=== PATIENT | female | born 1990 | race Caucasian/White ===

== ENCOUNTER → 2021-12-31 | Outpatient (CLI) | payer OTHER, SELFPAY ==
--- NOTE | 2021-12-31 11:04 | RAD_ITS ---
STUDY: X-RAY CHEST REASON FOR EXAM: Female, 31 years old. Psoriatic arthritis. No chest complaints. May be checking for tuberculosis. TECHNIQUE: PA and lateral views of the chest. COMPARISON: None. FINDINGS: The lungs are clear and expanded. No acute infiltrate or mass. There is no evidence of active tuberculosis. There is no demonstrated pleural abnormality. Normal size heart. Normal mediastinum and ruthann. Normal visualized pulmonary arteries. Normal visualized aortic arch and descending thoracic aorta. Normal visualized thoracic spine. Normal visualized ribs, clavicles, and shoulders. There is no demonstrated abnormality of the visualized soft tissue structures of the upper abdomen. RAD/Chest PA and Lateral IMPRESSION: Normal x-ray examination of the chest. Electronically Signed: Chas Rust DO at 20:38 EDT ,
[2021-12-31 11:50] LABS: EXAGEN MAILED SPECIMEN
[2021-12-31 12:16] LABS: Absolute Lymphocyte Count 1.74 X10^3/uL (0.83-4.51); Absolute Neutrophil Count 2.8 X10^3/uL (2.0-7.7); Basophil# 0.04 X10^3/uL; Basophil% 0.8 % (0-1); Eosinophil# 0.07 X10^3/uL; Eosinophils% 1.4 % (0-5); Erythrocyte Sedimentation Rate 3 mm/hr (0-30); Hematocrit 41.8 % (37-47); Hemoglobin 14.4 g/dL (12.0-15.0); Lymphocyte # 1.74 X10^3/ul (0.83-4.51); Lymphocyte % 34.7 % (19-41); Mean Corp Hgb Conc 34.4 g/dL (32-36); Mean Corpuscular Volume 84.3 fL (81-99); Mean Platelet Vol. 10.5 fl (6.2-12.0); Monocyte# 0.34 X10^3/uL; Monocyte% 6.8 % (0-10); NRBC Flagged by Analyzer 0 % (0-5); Neutrophil # 2.83 X10^3/uL (2.7-7.7); Neutrophil % 56.3 % (47-70); Platelet Count 325 K/mm3 (150-450); RBC Distribution Width CV 11.9 % (11.6-14.6); Red Blood Count 4.96 M/mm3 (4.2-5.4)
[2021-12-31 12:34] LABS: Color, Urine Yellow (Yellow); Glucose, Dipstick Normal (Normal); Ketone-Dipstick Negative (Negative); Leukocyte Esterase-Dipstick Negative /ul (Negative); Nitrite-Dipstick Negative (Negative); Occult Blood-Urine Negative /ul (Negative); Protein-Dipstick Negative (Negative); Specific Gravity, Urine 1.015 (1.002-1.030); Urine Bilirubin Dipstick Negative (Negative); Urine Clarity Clear (Clear); Urine Urobilinogen Normal (Normal)
[2021-12-31 12:48] LABS: International Normalized Ratio 1.3; Prothrombin Time (Protime)PT. 15.4 SECONDS (11.7-14.9)
[2021-12-31 12:49] LABS: Partial Thromboplast Time 36.4 Seconds (24.1-36.2)
[2021-12-31 12:54] LABS: ALB/GLOB Ratio 1.1 RATIO (0.9-2.4); AST(SGOT) 23 U/L (15-37); Alanine Aminotransfer ALT/SGPT 56 U/L (13-56); Alkaline Phosphatase 80 U/L (45-117); Anion Gap 6 (5-15); BUN 11 mg/dL (7-18); CRP < 2.90 mg/L (0.0-3.0); Calcium,Total 9.2 mg/dL (8.5-10.1); Chloride 103 mmol/L (98-107); Creatinine, Serum 0.85 mg/dL (0.55-1.02); EST Glomerular Filtration Rate 82 mL/min (>60); Est Glom Filt Rate - Afr Amer 99 mL/min (>60); Globulin 3.5 g/dL (2.2-4.2); Glucose 93 mg/dL (74-106); Potassium 3.8 mmol/L (3.5-5.1); Protein, Total 7.5 g/dL (6.4-8.2); Sodium Level 137 mmol/L (136-145)
[2021-12-31 13:06] LABS: Protein, Urine (Random) 13.3 mg/dL (<11.9); Protein:Creat Ratio 69 mg/g CRE (0-200)
[2021-12-31 13:37] LABS: Hepatitis B Surface Antibody Reactive; Hepatitis B Surface Antigen Non-Reactive (Nonreactive); Hepatitis C Antibody Non-Reactive (Nonreactive)
[2022-01-04 17:48] LABS: Thrombin Time 18.1 sec (0.0-23.0)
[2022-01-08 20:07] LABS: Dilute Prothrombin Time (dPT) 42.4 sec (0.0-47.6); Dilute Russell Viper Venom 42.3 sec (0.0-47.0); Hexagonal Phase Phospholipid 1 sec (0-11); PTT-LA 46.6 sec (0.0-51.9); QNTFERON TB Mitogen Value > 10.00 IU/mL (.); QNTFERON TB Nil Value 0.03 IU/mL (.); QNTFERON TB1+ Ag Value 0.04 IU/mL (.); QNTFERON TB2+ Ag Value 0.06 IU/mL (.); Thrombin Time 20.6 sec (0.0-23.0); dPT Confirm Ratio 0.99 Ratio (0.00-1.34)
[2022-01-09 12:30] LABS: HLA B27 Positive (.); Interpretation Comment: (.); QNTIFERON TB Positive Criteria Negative (Negative)
== END | disposition home or self-care (01) ==
PROVIDERS: PCP Nurse Practitioner Family; Referring Provider Internal Medicine Rheumatology; Visit Provider Internal Medicine Rheumatology
DX: L40.50 Arthropathic psoriasis, unspecified (principal); R76.8 Other specified abnormal immunological findings in serum; M79.7 Fibromyalgia; Q61.5 Medullary cystic kidney; N20.0 Calculus of kidney; F41.9 Anxiety disorder, unspecified; F32.A Depression, unspecified; Z79.899 Other long term (current) drug therapy
CPT/HCPCS: 36415; 71046; 80053; 81002; 81374; 82570; 84156; 85025; 85598; 85610; 85652; 85670; 85730; 86140; 86480; 86706; 86803; 87340

== ENCOUNTER → 2022-03-12 | Outpatient (CLI) | payer OTHER, SELFPAY ==
[2022-03-12 15:29] LABS: Absolute Lymphocyte Count 1.36 X10^3/uL (0.83-4.51); Basophil# 0.03 X10^3/uL; Basophil% 0.5 % (0-1); Eosinophil# 0.08 X10^3/uL; Eosinophils% 1.4 % (0-5); Hemoglobin 14.3 g/dL (12.0-15.0); Lymphocyte # 1.36 X10^3/ul (0.83-4.51); Lymphocyte % 23.1 % (19-41); Mean Corp Hgb Conc 35.8 g/dL (32-36); Mean Corpuscular Hgb 30.2 pg (27.0-32.0); Mean Corpuscular Volume 84.4 fL (81-99); Mean Platelet Vol. 10.7 fl (6.2-12.0); Monocyte# 0.36 X10^3/uL; Monocyte% 6.1 % (0-10); NRBC Flagged by Analyzer 0 % (0-5); Neutrophil # 4.04 X10^3/uL (2.7-7.7); Neutrophil % 68.4 % (47-70); Platelet Count 297 K/mm3 (150-450); RBC Distribution Width CV 12.2 % (11.6-14.6); RBC Distribution Width SD 36.6 fl (35.1-43.9); Red Blood Count 4.74 M/mm3 (4.2-5.4); White Blood Count 5.9 K/mm3 (4.4-11.0)
[2022-03-12 15:39] LABS: ALB/GLOB Ratio 1.2 RATIO (0.9-2.4); AST(SGOT) 28 U/L (15-37); Alanine Aminotransfer ALT/SGPT 73 U/L (13-56); Albumin, Serum 3.8 g/dL (3.2-5.0); Alkaline Phosphatase 83 U/L (45-117); Anion Gap 6 (5-15); BUN 11 mg/dL (7-18); BUN/Creat Ratio 14.5 RATIO (10-20); Calcium,Total 9.2 mg/dL (8.5-10.1); Chloride 106 mmol/L (98-107); Creatinine, Serum 0.76 mg/dL (0.55-1.02); EST Glomerular Filtration Rate 93 mL/min (>60); Est Glom Filt Rate - Afr Amer 113 mL/min (>60); Globulin 3.3 g/dL (2.2-4.2); Glucose 126 mg/dL (74-106); Potassium 3.6 mmol/L (3.5-5.1); Protein, Total 7.1 g/dL (6.4-8.2); Sodium Level 136 mmol/L (136-145)
== END | disposition home or self-care (01) ==
PROVIDERS: PCP Nurse Practitioner Family; Referring Provider Internal Medicine Rheumatology; Visit Provider Internal Medicine Rheumatology
DX: L40.50 Arthropathic psoriasis, unspecified (principal); R76.8 Other specified abnormal immunological findings in serum; Z79.899 Other long term (current) drug therapy
CPT/HCPCS: 36415; 80053; 85025

== ENCOUNTER → 2022-04-11 | Outpatient (CLI) | payer OTHER, SELFPAY ==
[2022-04-11 13:22] LABS: ALB/GLOB Ratio 1.1 RATIO (0.9-2.4); AST(SGOT) 16 U/L (15-37); Alanine Aminotransfer ALT/SGPT 49 U/L (13-56); Albumin, Serum 3.9 g/dL (3.2-5.0); Alkaline Phosphatase 87 U/L (45-117); Anion Gap 8 (5-15); BUN 14 mg/dL (7-18); BUN/Creat Ratio 17.2 RATIO (10-20); Calcium,Total 9.2 mg/dL (8.5-10.1); Chloride 104 mmol/L (98-107); Creatinine, Serum 0.81 mg/dL (0.55-1.02); EST Glomerular Filtration Rate 86 mL/min (>60); Est Glom Filt Rate - Afr Amer 104 mL/min (>60); Globulin 3.4 g/dL (2.2-4.2); Glucose 103 mg/dL (74-106); Potassium 3.7 mmol/L (3.5-5.1); Protein, Total 7.3 g/dL (6.4-8.2); Sodium Level 136 mmol/L (136-145)
== END | disposition home or self-care (01) ==
LOC: LAB 12:40
PROVIDERS: PCP Nurse Practitioner Family; Referring Provider Internal Medicine Rheumatology; Visit Provider Internal Medicine Rheumatology
DX: L40.50 Arthropathic psoriasis, unspecified (principal); R76.8 Other specified abnormal immunological findings in serum; Z79.899 Other long term (current) drug therapy
CPT/HCPCS: 36415; 80053

== ENCOUNTER 2022-04-22 14:48 | Emergency (ER) | payer OTHER, SELFPAY ==
[2022-04-22 14:51] VITALS: BP 125/96; PULSE 84; RESP 18; TEMP 35.7; O2SAT 100; BMI 38.9
--- NOTE | 2022-04-22 17:29 | EX.ED.VIS.UR ---
HPI <SEAN Lion - Last Filed: 04/22/22 21:34> HPI - URI History of Present Illness Chief Complaint: Cough Narrative Narrative: Patient presents today with a cough and fever that she has had since Friday. 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 Patient's son is also sick with similar symptoms. She has been taking ibuprofen for fever control. She denies shortness of breath, chest pain, nausea, vomiting, and diarrhea. ROS <SEAN Lion - Last Filed: 04/22/22 21:34> ROS ED Constitutional Constitutional ED: Reports fever(s); Denies chills or sweats Eyes Eyes: Denies blurry vision or change in vision ENT ENT ED: Reports ear pain left and nasal congestion; Denies sore throat Cardiovascular Cardiovascular: Denies chest pain or palpitations Respiratory/Chest Respiratory/Chest: Reports cough; Denies dyspnea, dyspnea on exertion, tachypnea or wheezing Gastrointestinal Gastrointestinal: Denies abdominal pain, nausea or vomiting Genitourinary Genitourinary ED: Denies dysuria, hematuria or urinary frequency Musculoskeletal Musculoskeletal: Denies myalgias or neck pain Integumentary Denies abscess, Abrasions or rash Neurologic Neurologic: Denies headache(s), paresthesias or weakness Psychiatric Psychiatric: Denies anxiety, depression or suicidal ideation Allergic/Immunologic Allergic/Immunologic ED: Denies mouth swelling or tongue swelling PFSH <SEAN Lion - Last Filed: 04/22/22 21:34> PFS Medical History Medullary sponge kidney Psoriatic arthritis Home Medications adalimumab 40 mg/0.4 mL subcutaneous syringe kit (Humira(CF)) 40 mg subcut X1 04/22/22 [History Last Taken Unknown] sertraline 100 mg tablet 100 mg PO QHS 04/22/22 [History Last Taken Unknown] trazodone 50 mg tablet 50 mg PO QHS 04/22/22 [History Last Taken Unknown] Allergy/AdvReac Type Severity Reaction Status Date / Time No Known Allergies Allergy Verified 04/22/22 14:50 Surgical History H/O: hysterectomy Social History Smoking Status: Never smoker EXAM <SEAN Lion - Last Filed: 04/22/22 21:34> Physical Exam Const Vital Signs: 04/22/22 14:51 04/22/22 17:10 04/22/22 18:30 Temperature 96.2 F L Temperature Source Temporal Pulse Rate 84 85 Respiratory Rate 18 16 Respiratory Depth Normal Respiratory Pattern Normal Blood Pressure 125/96 H 120/89 H Blood Pressure Mean 105 Pulse Ox 100 99 Oxygen Delivery Method Room Air Positive well nourished and well developed General Appearance ED: well developed and NAD HEENT Reports moist mucous membranes normocephalic Throat: uvula midline and posterior oropharynx abnormal Positive for erythema Eyes PERRL and EOMs intact bilaterally Neck no lymphadenopathy, supple and no meningeal signs Resp normal respiratory effort Auscultation: crackles diffuse Cardio no murmurs Rate: regular rate Rhythm: regular rhythm GI non-distended and no masses GI Narrative: Some tenderness to palpation in the epigastric region which she attributes to a possible hernia. Palpation: soft Back/Spine normal ROM Extremity normal to inspection and full ROM Neuro oriented x3, CN's II-XII intact bilaterally and no sensory deficits noted Sensorium / Orientation: alert Motor Exam: strength 5/5 throughout Psych mental status grossly normal Skin Lesions: no lesions Rashes: no rashes <Dr. Tej Sheffield MD - Last Filed: 04/22/22 17:39> Physical Exam Const Vital Signs: 04/22/22 14:51 04/22/22 17:10 04/22/22 18:30 Temperature 96.2 F L Temperature Source Temporal Pulse Rate 84 85 Respiratory Rate 18 16 Respiratory Depth Normal Respiratory Pattern Normal Blood Pressure 125/96 H 120/89 H Blood Pressure Mean 105 Pulse Ox 100 99 Oxygen Delivery Method Room Air MDM <SEAN Lion - Last Filed: 04/22/22 21:34> [facility] MDM Narrative Medical decision making narrative: I have personally performed a face to face assessment of the patient and have reviewed the TRISTIN Note. I performed a substantive portion of the visit including all aspects of the following. My hall findings include: History is [31-year-old female 7 history of URI symptoms. Nonproductive cough. Son came down with similar symptoms. No vomiting or diarrhea.] Exam is [there is erythema no acute distress vital signs stable afebrile. Pulse ox 9% on room air no hypoxia. H EENT exam unremarkable. Moist Riis members. Neck nontender no JVD. Lungs dry hacking cough. No rales, rhonchi or wheezing. Equal symmetrical. Heart regular rhythm no murmur. Abdomen soft nontender. Moving all 4 extremities. Calves are nontender with edema or cords.] Medical Decision Making [history and exam consistent with viral URI. Chest x-ray, COVID and influenza are pending. I suspect all 3 will be negative. Discharged home for symptomatic treatment.] Other additions or changes: [None] Patient has symptoms consistent with a viral URI. Chest x-ray does not show any infiltrates. COVID and flu are negative. I am comfortable with patient discharging home and patient is comfortable with plan. She has been given education on supportive care measures. Radiography Diagnostic Testing: Clinical Impression(s) from Imaging Studies Chest X-Ray 04/22/22 17:55 IMPRESSION: No radiographic evidence of acute cardiopulmonary disease. Electronically Signed: Vickie Amezquita MD at 19:01 EST Reading Location ID and State: [id number] / Tel , Service support , Chest x-ray does not show any acute disease. I agree with radiologist impressions. This x-ray has also been reviewed by attending ED physician. <Dr. Tej Sheffield MD - Last Filed: 04/22/22 17:39> [facility] Narrative Medical decision making narrative: I have personally performed a face to face assessment of the patient and have reviewed the TRISTIN Note. I performed a substantive portion of the visit including all aspects of the following. My hall findings include: History is [31-year-old female 7 history of URI symptoms. Nonproductive cough. Son came down with similar symptoms. No vomiting or diarrhea.] Exam is [there is erythema no acute distress vital signs stable afebrile. Pulse ox 9% on room air no hypoxia. H EENT exam unremarkable. Moist Riis members. Neck nontender no JVD. Lungs dry hacking cough. No rales, rhonchi or wheezing. Equal symmetrical. Heart regular rhythm no murmur. Abdomen soft nontender. Moving all 4 extremities. Calves are nontender with edema or cords.] Medical Decision Making [history and exam consistent with viral URI. Chest x-ray, COVID and influenza are pending. I suspect all 3 will be negative. Discharged home for symptomatic treatment.] Other additions or changes: [None] Radiography Diagnostic Testing: Clinical Impression(s) from Imaging Studies Chest X-Ray 04/22/22 17:55 IMPRESSION: No radiographic evidence of acute cardiopulmonary disease. Electronically Signed: Vickie Amezquita MD at 19:01 EST , Discharge Plan Triage Chief Complaint: Cough Other Complaint: Fever ED Midlevel Provider: Madelaine Mccarthy ED Provider: Tej Sheffield Dx/Rx/DC Orders Clinical Impression: Viral URI with cough Instructions: ED URI, Viral, No Abx (Adult) Prescriptions: No Action trazodone 50 mg tablet 50 mg PO QHS sertraline 100 mg tablet 100 mg PO QHS Humira(CF) 40 mg/0.4 mL syringe kit 40 mg SUBCUT X1 Rx Instructions: every 2 weeks Primary Care Provider: Toyin Lorenzana ASSOCIATE PROFESSOR OF KINESIOLOGY Referrals: Toyin Lorenzana ASSOCIATE PROFESSOR OF KINESIOLOGY, ASSOCIATE PROFESSOR OF KINESIOLOGY-C [Primary Care Provider] - 5-7 Days Activity Restrictions/Additional Instructions: Use Tylenol and ibuprofen for fever control. You can use [id number] cough medicine to help control your cough as well as cough drops. Please stay well-hydrated and return if symptoms worsen. Disposition Disposition: Home, Self Care Discharge Date/Time: 04/22/22 18:32
--- NOTE | 2022-04-22 17:55 | RAD_ITS ---
INDICATION: cough EXAMINATION/TECHNIQUE: X-RAY - XR Chest 1 View COMPARISON: 12/31/2021. FINDINGS: LINES/DEVICES: None. LUNGS: No consolidation, edema or effusion. No pneumothorax. MEDIASTINUM AND CARDIOVASCULAR STRUCTURES: Cardiac silhouette not enlarged. Central airways and mediastinal contour are unremarkable. BONES AND SOFT TISSUES: Unremarkable. RAD/Chest 1 View (Portable) IMPRESSION: No radiographic evidence of acute cardiopulmonary disease. Electronically Signed: Vickie Amezquita MD at 19:01 EST Reading Location ID and State: [id number] / Tel , Service support ,
[2022-04-22 18:30] VITALS: BP 120/89; PULSE 85; RESP 16; O2SAT 99
== END 2022-04-22 18:32 | disposition home or self-care (01) ==
LOC: ED 17:51
PROVIDERS: Emergency Provider Emergency Medicine; PCP Nurse Practitioner Family; Visit Provider Emergency Medicine
DX: J06.9 Acute upper respiratory infection, unspecified (principal); Z79.899 Other long term (current) drug therapy
CPT/HCPCS: 71045; 87428; 99282

== ENCOUNTER 2022-06-15 11:05 | Emergency (ER) | payer OTHER, SELFPAY ==
[2022-06-15 11:06] VITALS: BP 113/101; PULSE 131; RESP 20; TEMP 36.1; O2SAT 97; BMI 35.7
--- NOTE | 2022-06-15 11:18 | ED.VIS.GI ---
HPI HPI - GI History of Present Illness Chief Complaint: Flank Pain Narrative Narrative: 31-year-old female past medical history of ureteral stones presents with increasing pain that she has had since 10 PM last evening, approximately 13 hours ago. She states that she sees Dr. Funes with urology, and has a protocol where she takes Ditropan, Toradol, and Flomax when she thinks she has a stone. She has taken this and this morning has had increasing pain in her right flank radiating towards the front. She denies any fevers or chills. No nausea or vomiting currently. She denies any dysuria or hematuria yet. Of note, she states she also had diarrhea intermittently over the last week, and had an episode of diarrhea today. It was nonbloody, but she is unsure if this is anything to do with her right flank pain. [facility] PFS Medical History Medullary sponge kidney Psoriatic arthritis Home Medications adalimumab 40 mg/0.4 mL subcutaneous syringe kit (Humira(CF)) 40 mg subcut X1 04/22/22 [History Last Taken Unknown] sertraline 100 mg tablet 100 mg PO QHS 04/22/22 [History Last Taken Unknown] trazodone 50 mg tablet 50 mg PO QHS 04/22/22 [History Last Taken Unknown] Allergy/AdvReac Type Severity Reaction Status Date / Time No Known Allergies Allergy Verified 06/15/22 11:06 Surgical History H/O: hysterectomy Social History Smoking Status: Never smoker ROS ROS ED ROS Narrative Constitutional: No fever, no chills. HEENT: No sore throat. No neck pain. No loss of vision. No rhinorrhea. Cardiovascular: No chest pain. No palpitations. No pedal edema. Respiratory: No cough, no shortness of breath. Abdominal: No abdominal pain. No nausea. No vomiting. Genitourinary: No dysuria. No hematuria. Positive for right flank pain radiating towards the front. Musculoskeletal: No myalgias. No arthralgias. Neurologic: No headaches. No dizziness. No lightheadedness. Skin: No rash. No change in color. Psychiatric: No depression. No anxiety. EXAM Physical Exam Narrative Exam Narrative: Afebrile. Vital signs noted. Appears uncomfortable with colicky pain. HEENT: Normocephalic. Atraumatic. PERRL, EOMI. Neck soft and supple. No point tenderness or step off. Cardiovascular: Positive tachycardia.. No murmurs, rubs, or gallops appreciated. Respiratory: No tachypnea. Lungs clear to auscultation bilaterally. Gastrointestinal: Abdomen soft, nontender, with normoactive bowel sounds. No rebound or guarding. Right flank tenderness to percussion. Neurological: Awake. Alert. Nonfocal, nonlateralizing. Skin: No rash. Normal color. No pallor. Musculoskeletal: No pedal edema. Full range of motion extremities. Const Vital Signs: 06/15/22 11:06 06/15/22 11:08 06/15/22 16:09 Temperature 97 F L Temperature Source Temporal Pulse Rate 131 H 91 Respiratory Rate 20 H 16 Respiratory Effort Normal Non-Labored Respiratory Pattern Normal Blood Pressure 113/101 H 114/67 Blood Pressure Mean 105 82 Pulse Ox 97 98 Oxygen Delivery Method Room Air Room Air MDM MDM MDM Narrative Medical decision making narrative: In the differential diagnosis is ureterolithiasis versus right-sided diverticulitis given her diarrhea. She was bolused normal saline 1 L intravenously. She was administered Dilaudid 1 mg for analgesia along with Toradol 15 mg intravenously and ondansetron 4 mg intravenously. CBC, CMP, UA, and CT imaging without contrast was obtained. I reviewed her laboratory work, she has a normal white count of 7.9, hemoglobin 15.2, platelet count normal at 241. Electrolyte panel is reviewed and chloride is slightly elevated at 108, normal sodium of 139, BUN normal at 9, creatinine 0.81. Urinalysis shows ketones at 150, but no evidence of infection with 0-5 WBCs. I do not feel that antibiotics are indicated. CT of the abdomen pelvis without contrast was obtained and reviewed. I see no evidence of hydronephrosis or ureterolithiasis. I reviewed the radiology report, and there is concern for ovarian torsion as she has a right ovary that measures 6.2 x 5.5 cm. Ultrasound was suggested. Transvaginal ultrasound was obtained. In review of the radiology report, while there is vascular flow, there is concern for ovarian torsion as it is enlarged and has echogenic follicles in the periphery, and small cyst with moderate complex free fluid concerning for hemorrhage. Given her clinical examination, and the fact that she had required 3 doses of Dilaudid, I will discuss the patient with Dr. Davis with OBGYN. Disposition is pending [employer] evaluation, but is anticipated admission. Patient is in stable condition. Lab Data Attestation: I reviewed the patient's lab results. Labs: Laboratory Results - last 24 hr 06/15/22 06/15/22 06/15/22 11:35 11:35 13:09 WBC 7.9 RBC 5.41 H Hgb 15.2 H Hct 45.2 MCV 83.5 MCH 28.1 MCHC 33.6 RDW Std Deviation 36.9 RDW Coeff of Shannon 12.2 Plt Count 241 MPV 10.2 Immature Gran % (Auto) 0.100 Neut % (Auto) 75.6 H Lymph % (Auto) 11.7 L Churchill % (Auto) 10.5 H Eos % (Auto) 1.6 Baso % (Auto) 0.5 Absolute Neuts (auto) 6.0 Absolute Lymphs (auto) 0.93 Nucleated RBC % 0 Sodium 139 Potassium 3.7 Chloride 108 H Carbon Dioxide 21.0 Anion Gap 10 BUN 9 Creatinine 0.81 Estim Creat Clear Calc 81.72 Est GFR (MDRD) Af Amer 105 Est GFR (MDRD) Non-Af 87 BUN/Creatinine Ratio 11.2 Glucose 119 H Calcium 9.5 Urine Color Yellow Urine Clarity Clear Urine pH 6.0 Ur Specific Hawkins 1.015 Urine Protein 30 H Urine Glucose (UA) Normal Urine Ketones 150 A* Urine Occult Blood Negative Urine Nitrite Negative Urine Bilirubin Negative Urine Urobilinogen Normal Ur Leukocyte Esterase Negative Urine RBC 0 SEEN Urine WBC 0-5 SEEN Ur Squamous Epith Cells 0-5 SEEN Urine Bacteria 1+ Urine Mucus 0 SEEN Radiography Diagnostic Testing: Clinical Impression(s) from Imaging Studies Abdomen/Pelvis CT 06/15/22 12:38 IMPRESSION: 1. Nonobstructing bilateral kidney stones. 2. Mild splenomegaly 3. The right ovary is moderately enlarged at 6.24 x 5.51 cm but no mass or suspicious process is seen. The left ovary is unremarkable. Electronically Signed: Winston Albert MD at 13:56 EST , Transvaginal US 06/15/22 14:02 IMPRESSION: Vascular flow demonstrated to both ovaries with abnormal grayscale appearance of the right ovary, enlarged and echogenic with peripheral follicles and small cyst suspicious for ovarian torsion if there is a high clinical suspicion. Moderate complex free fluid in the pelvis concerning for hemorrhage. Electronically Signed: Adelia Parks MD at 15:52 EST , ADDENDUM: 06/15/22 1607 IMPRESSION: Vascular flow demonstrated to both ovaries with abnormal grayscale appearance of the right ovary, enlarged and echogenic with peripheral follicles and small cyst suspicious for ovarian torsion if there is a high clinical suspicion. Moderate complex free fluid in the pelvis concerning for hemorrhage. N.B. : Gene Alfaro MD, confirmed on 06/15/2022 16:00:24 (ET) that the healthcare facility has received the radiology report. Electronically Signed: Adelia Parks MD at 15:52 EST , Discharge Plan Dx/Rx/DC Orders Clinical Impression: Torsion of right ovary, Intractable right lower quadrant abdominal pain Disposition Disposition: Acute Care Hospital [facility]
[2022-06-15] MEDS: 0.9% Normal Saline 1,000 ML 999 ML IV (11:33)
[2022-06-15] MEDS: Ondansetron 4 MG/2 ML Vial IV ×2 (11:33→17:15)
[2022-06-15] MEDS: HYDROmorphone 1 MG/ML Syringe IV ×5 (11:33→20:14)
[2022-06-15] MEDS: Ketorolac 15 MG/ML Vial IV (11:43)
[2022-06-15 11:45] LABS: Absolute Lymphocyte Count 0.93 X10^3/uL (0.83-4.51); Basophil# 0.04 X10^3/uL; Basophil% 0.5 % (0-1); Eosinophil# 0.13 X10^3/uL; Eosinophils% 1.6 % (0-5); Hematocrit 45.2 % (37-47); Hemoglobin 15.2 g/dL (12.0-15.0); Lymphocyte # 0.93 X10^3/ul (0.83-4.51); Lymphocyte % 11.7 % (19-41); Mean Corp Hgb Conc 33.6 g/dL (32-36); Mean Corpuscular Hgb 28.1 pg (27.0-32.0); Mean Corpuscular Volume 83.5 fL (81-99); Mean Platelet Vol. 10.2 fl (6.2-12.0); Monocyte# 0.83 X10^3/uL; Monocyte% 10.5 % (0-10); NRBC Flagged by Analyzer 0 % (0-5); Neutrophil % 75.6 % (47-70); Platelet Count 241 K/mm3 (150-450); RBC Distribution Width CV 12.2 % (11.6-14.6); RBC Distribution Width SD 36.9 fl (35.1-43.9); Red Blood Count 5.41 M/mm3 (4.2-5.4); White Blood Count 7.9 K/mm3 (4.4-11.0)
[2022-06-15 11:57] LABS: Anion Gap 10 (5-15); BUN 9 mg/dL (7-18); BUN/Creat Ratio 11.2 RATIO (10-20); Calcium,Total 9.5 mg/dL (8.5-10.1); Chloride 108 mmol/L (98-107); Creatinine, Serum 0.81 mg/dL (0.55-1.02); EST Glomerular Filtration Rate 87 mL/min (>60); Est Glom Filt Rate - Afr Amer 105 mL/min (>60); Estimated Creatinine Clearance 81.72 ml/min; Glucose 119 mg/dL (74-106); Potassium 3.7 mmol/L (3.5-5.1); Sodium Level 139 mmol/L (136-145)
--- NOTE | 2022-06-15 12:38 | CT_ITS ---
STUDY: CT ABDOMEN AND PELVIS WITHOUT CONTRAST REASON FOR EXAM: Female, 31 years old. RT FLANK PAIN, HX: [place],HYSTER RADIATION DOSAGE (If Supplied By Facility): CTDIvol = ( 15.23 ) mGy, DLP = ( 761.09 ) mGycm TECHNIQUE: Transaxial images were obtained from the dome of the diaphragm to the symphysis pubis without oral contrast, and without intravenous contrast. Sagittal and coronal images were reconstructed. Individualized dose optimization techniques were used for this CT. COMPARISON: None. FINDINGS: The visualized lung bases are unremarkable. The visualized portions of the heart are within normal limits. Normal liver. There are surgical clips in the gallbladder fossa consistent with a prior cholecystectomy. The spleen is mildly enlarged at 13.87 cm. Normal pancreas. Normal bilateral adrenal glands. 1 mm calyceal stone in the lower pole of the right kidney see image 76/181 series 2. There are 2 punctate/approximately 1 mm stones adjacent to one another in the upper pole calyx of the left kidney. No hydronephrosis or hydroureter is present. Normal left kidney. Normal visualized stomach. Normal small intestine. Normal colon. The appendix is visualized and appears normal. A small amount of ascites is present. Normal abdominal aorta. Normal inferior vena cava. Normal retroperitoneum. Normal urinary bladder. There is absence of the uterus consistent with a prior hysterectomy. The right ovary is moderately enlarged at 6.24 x 5.51 cm but no mass or suspicious process is seen. The left ovary is unremarkable. There is a small umbilical hernia containing fat. Normal osseous structures. Small benign bone island noted in the right intertrochanteric region. CT/Abdomen/Pelvis without Cont IMPRESSION: 1. Nonobstructing bilateral kidney stones. 2. Mild splenomegaly 3. The right ovary is moderately enlarged at 6.24 x 5.51 cm but no mass or suspicious process is seen. The left ovary is unremarkable. Electronically Signed: Winston Albert MD at 13:56 EST ,
[2022-06-15 13:12] LABS: Mucous, Urine 0 SEEN /hpf (<or=2+); Red Blood Cells-Urine 0 SEEN /hpf (0-5)
[2022-06-15 13:14] LABS: Color, Urine Yellow (Yellow); Glucose, Dipstick Normal (Normal); Leukocyte Esterase-Dipstick Negative /ul (Negative); Nitrite-Dipstick Negative (Negative); Occult Blood-Urine Negative /ul (Negative); Protein-Dipstick 30 mg/dl (Negative); Specific Gravity, Urine 1.015 (1.002-1.030); Urine Bilirubin Dipstick Negative (Negative); Urine Clarity Clear (Clear); Urine Urobilinogen Normal (Normal)
[2022-06-15 13:15] LABS: Ketone-Dipstick 150 mg/dl (Negative)
[2022-06-15 13:22] LABS: Bacteria 1+ /hpf (None Seen); Squamous Epithelial Cells - UA 0-5 SEEN /hpf (5-10); White Blood Cells 0-5 SEEN /hpf (0-5)
--- NOTE | 2022-06-15 14:02 | US_ITS ---
ACR Level 3 findings have been noted. An addendum which confirms receipt of the report will follow. HISTORY: RLQ pain, rule out ovarian torsion, status post hysterectomy 2017, follow-up CT for enlarged right ovary and history of kidney stones. TECHNIQUE: Transvaginal pelvic ultrasound was performed with arnold scale , spectral Doppler, and color Doppler evaluation. 50 images. COMPARISON: CT earlier same day. FINDINGS: UTERUS: Surgically absent. RIGHT OVARY: 4.5 x 4.5 x 5.6 cm with peripherally oriented follicles and increased echogenicity. Vascular flow demonstrated. 1.6 x 1.9 x 2.4 cm cyst. LEFT OVARY: 2.5 x 2.9 x 2.9 cm with small follicles. Vascular flow demonstrated. No adnexal masses FREE FLUID: Moderate complex free fluid with internal echoes. US/Transvaginal Non- IMPRESSION: Vascular flow demonstrated to both ovaries with abnormal grayscale appearance of the right ovary, enlarged and echogenic with peripheral follicles and small cyst suspicious for ovarian torsion if there is a high clinical suspicion. Moderate complex free fluid in the pelvis concerning for hemorrhage. Electronically Signed: Adelia Parks MD at 15:52 EST ,
[2022-06-15 16:09] VITALS: BP 114/67; PULSE 91; RESP 16; O2SAT 98
[2022-06-15] MEDS: fentaNYL 100 MCG/2 ML Ampul 50 MCG IV (16:28)
[2022-06-15 18:00] VITALS: BP 117/88; PULSE 92; RESP 16; O2SAT 98
--- NOTE | 2022-06-15 18:13 | PCM.CONS.GEN ---
Assessment & Plan Assessment/Plan (1) RLQ abdominal pain: PLAN: Patient has significant tenderness on exam in the ER after IV pain medication. At this time she is hemodynamically stable. Reviewed CTAP and pelvic US results with her. Discussed unclear at this time if this is a ruptured ovarian cyst that is/was bleeding, or an ovarian torsion. The right ovary is enlarged so could possibly be a torsion given her pain. There is a small right ovarian cyst that is not significant in size, and moderate fluid in the pelvis and discussed this could represent a ruptured hemorrhagic cyst. Discussed often we can observe ruptured cysts with serial vitals, exams, and H&H. Discussed possible need for surgical intervention given her pain. Discussed patient with partners for a second opinion. Discussed option for transfer to a tertiary care center for possible surgical intervention as she reports multiple prior surgeries with significant adhesive disease. Patient desires transfer to a tertiary care center. Called placed to [facility] and ER at tertiary care center who accept the transfer. (2) History of hysterectomy: (3) Enlarged ovary: HPI Consult Data Date of Consult: 06/15/22 HPI Narrative Reason for Consultation: pelvic pain HPI Narrative: GINETTE CHAMBERLAIN, is a 31 F who presents to the ER with pelvic pain. She states last night she had RLQ pain that was acute in onset. It was severe and kept her up throughout the night. The pain persisted and worsened, and she developed nausea with the pain. She presented to the ER with this acute, severe RLQ pain. She states other than the pain and nausea she has no other complaints. She denies lightheadedness or dizziness. Prior to the pain she states she was having no fevers, chills, vaginal discharge, urinary symptoms, vomiting, difficulty eating. She had a few episodes of loose stools prior to the pain. She says she has had ruptured ovarian cysts in the past but this pain feels worse and is persisting longer than what she is used to. She has not seen a coil tester in years. She says she has had 4 prior c-sections, a robotic cholecystectomy, and a robotic hysterectomy. She reports at the time of the hysterectomy she was told she had significant adhesive disease. She says the hysterectomy took 3 additional hours due to adhesive disease. Currently and is present at bedside with her. [facility] Medical History Medullary sponge kidney Psoriatic arthritis Home Medications adalimumab 40 mg/0.4 mL subcutaneous syringe kit (Humira(CF)) 40 mg subcut X1 04/22/22 [History Last Taken Unknown] sertraline 100 mg tablet 100 mg PO QHS 04/22/22 [History Last Taken Unknown] trazodone 50 mg tablet 50 mg PO QHS 04/22/22 [History Last Taken Unknown] Allergy/AdvReac Type Severity Reaction Status Date / Time No Known Allergies Allergy Verified 06/15/22 11:06 Surgical History H/O: hysterectomy Social History Smoking Status: Never smoker Physical Exam Const alert Resp normal respiratory effort GI soft to palpation and non-distended GI Narrative: +Diffuse tenderness with significant tenderness in RLQ, some guarding, no rebounding or rigidity Lab / Micro Data Result Diagrams: 06/15/22 11:35 06/15/22 11:35 Labs: Laboratory Results - last 24 hr 06/15/22 11:35: WBC 7.9, RBC 5.41 H, Hgb 15.2 H, Hct 45.2, MCV 83.5, MCH 28.1, MCHC 33.6, RDW Std Deviation 36.9, RDW Coeff of [place] 12.2, Plt Count 241, MPV 10.2, Immature Gran % (Auto) 0.100, Neut % (Auto) 75.6 H, Lymph % (Auto) 11.7 L, [place] % (Auto) 10.5 H, Eos % (Auto) 1.6, Baso % (Auto) 0.5, Absolute Neuts (auto) 6.0, Absolute Lymphs (auto) 0.93, Nucleated RBC % 0 06/15/22 11:35: Sodium 139, Potassium 3.7, Chloride 108 H, Carbon Dioxide 21.0, Anion Gap 10, BUN 9, Creatinine 0.81, Estim Creat Clear Calc 81.72, Est GFR (MDRD) Af Amer 105, Est GFR (MDRD) Non-Af 87, BUN/Creatinine Ratio 11.2, Glucose 119 H, Calcium 9.5 06/15/22 13:09: Urine Color Yellow, Urine Clarity Clear, Urine pH 6.0, Ur Specific [place] 1.015, Urine Protein 30 H, Urine Glucose (UA) Normal, Urine Ketones 150 A*, Urine Occult Blood Negative, Urine Nitrite Negative, Urine Bilirubin Negative, Urine Urobilinogen Normal, Ur Leukocyte Esterase Negative, Urine RBC 0 SEEN, Urine WBC 0-5 SEEN, Ur Squamous Epith Cells 0-5 SEEN, Urine Bacteria 1+, Urine Mucus 0 SEEN Radiology Impression Abdomen/Pelvis CT 06/15/22 12:38 IMPRESSION: 1. Nonobstructing bilateral kidney stones. 2. Mild splenomegaly 3. The right ovary is moderately enlarged at 6.24 x 5.51 cm but no mass or suspicious process is seen. The left ovary is unremarkable. Electronically Signed: Winston Albert MD at 13:56 EST , Transvaginal US 06/15/22 14:02 IMPRESSION: Vascular flow demonstrated to both ovaries with abnormal grayscale appearance of the right ovary, enlarged and echogenic with peripheral follicles and small cyst suspicious for ovarian torsion if there is a high clinical suspicion. Moderate complex free fluid in the pelvis concerning for hemorrhage. Electronically Signed: Adelia Parks MD at 15:52 EST , ADDENDUM: 06/15/22 1607 IMPRESSION: Vascular flow demonstrated to both ovaries with abnormal grayscale appearance of the right ovary, enlarged and echogenic with peripheral follicles and small cyst suspicious for ovarian torsion if there is a high clinical suspicion. Moderate complex free fluid in the pelvis concerning for hemorrhage. N.B. : Gene Alfaro MD, confirmed on 06/15/2022 16:00:24 (ET) that the healthcare facility has received the radiology report. Electronically Signed: Adelia Parks MD at 15:52 EST ,
--- NOTE | 2022-06-15 20:20 | NURSING ---
Report called to PLASMA TABLE OPERATORRUBY Mcguire.
[2022-06-15 20:21] VITALS: BP 132/83; PULSE 91; RESP 16; TEMP 36.7; O2SAT 98
== END 2022-06-15 20:26 | disposition short-term general hospital (02) ==
PROVIDERS: Emergency Provider Emergency Medicine; PCP Nurse Practitioner Family; Visit Provider Emergency Medicine
DX: N83.511 Torsion of right ovary and ovarian pedicle (principal); N83.8 Other noninflammatory disorders of ovary, fallopian tube and broad ligament; Z90.710 Acquired absence of both cervix and uterus; N20.0 Calculus of kidney
CPT/HCPCS: 74176; 76830; 80048; 81001; 85025; 93976; 96361; 96374; 96375; 96376; 99285; J7030; A4216; J2405

== ENCOUNTER → 2022-08-03 | Outpatient (CLI) | payer OTHER, SELFPAY ==
[2022-08-03 06:32] LABS: Basophil# 0.05 X10^3/uL; Basophil% 0.6 % (0-1); Eosinophil# 0.11 X10^3/uL; Eosinophils% 1.4 % (0-5); Hematocrit 43.1 % (37-47); Hemoglobin 14.3 g/dL (12.0-15.0); Lymphocyte % 26.5 % (19-41); Mean Corp Hgb Conc 33.2 g/dL (32-36); Mean Corpuscular Hgb 28.4 pg (27.0-32.0); Mean Corpuscular Volume 85.7 fL (81-99); Mean Platelet Vol. 10.5 fl (6.2-12.0); Monocyte# 0.67 X10^3/uL; Monocyte% 8.5 % (0-10); NRBC Flagged by Analyzer 0 % (0-5); Neutrophil # 4.95 X10^3/uL (2.7-7.7); Neutrophil % 62.6 % (47-70); Platelet Count 325 K/mm3 (150-450); RBC Distribution Width CV 12.1 % (11.6-14.6); RBC Distribution Width SD 37.7 fl (35.1-43.9); Red Blood Count 5.03 M/mm3 (4.2-5.4); White Blood Count 7.9 K/mm3 (4.4-11.0)
[2022-08-03 07:08] LABS: ALB/GLOB Ratio 1.1 RATIO (0.9-2.4); AST(SGOT) 21 U/L (15-37); Alanine Aminotransfer ALT/SGPT 47 U/L (13-56); Alkaline Phosphatase 105 U/L (45-117); Anion Gap 3 (5-15); BUN 12 mg/dL (7-18); BUN/Creat Ratio 14.6 RATIO (10-20); Calcium,Total 9.6 mg/dL (8.5-10.1); Chloride 107 mmol/L (98-107); Creatinine, Serum 0.82 mg/dL (0.55-1.02); EST Glomerular Filtration Rate 85 mL/min (>60); Est Glom Filt Rate - Afr Amer 103 mL/min (>60); Globulin 3.8 g/dL (2.2-4.2); Glucose 106 mg/dL (74-106); Potassium 3.8 mmol/L (3.5-5.1); Protein, Total 7.8 g/dL (6.4-8.2); Sodium Level 135 mmol/L (136-145)
== END | disposition home or self-care (01) ==
PROVIDERS: PCP Nurse Practitioner Family; Visit Provider Internal Medicine Rheumatology
DX: L40.50 Arthropathic psoriasis, unspecified (principal); R76.8 Other specified abnormal immunological findings in serum; M79.7 Fibromyalgia; Q61.5 Medullary cystic kidney; N20.0 Calculus of kidney; F41.9 Anxiety disorder, unspecified; F32.A Depression, unspecified; Z79.899 Other long term (current) drug therapy
CPT/HCPCS: 80053; 85025

== ENCOUNTER → 2022-11-16 | Outpatient (CLI) | payer OTHER, SELFPAY ==
[2022-11-16 17:52] LABS: Absolute Lymphocyte Count 2.13 X10^3/uL (0.83-4.51); Absolute Neutrophil Count 4.9 X10^3/uL (2.0-7.7); Basophil# 0.04 X10^3/uL; Basophil% 0.5 % (0-1); Eosinophil# 0.07 X10^3/uL; Eosinophils% 0.9 % (0-5); Hematocrit 40.8 % (37-47); Hemoglobin 13.9 g/dL (12.0-15.0); Lymphocyte # 2.13 X10^3/ul (0.83-4.51); Lymphocyte % 27.6 % (19-41); Mean Corp Hgb Conc 34.1 g/dL (32-36); Mean Corpuscular Hgb 29.1 pg (27.0-32.0); Mean Corpuscular Volume 85.4 fL (81-99); Mean Platelet Vol. 9.8 fl (6.2-12.0); Monocyte% 7.8 % (0-10); NRBC Flagged by Analyzer 0 % (0-5); Neutrophil # 4.87 X10^3/uL (2.7-7.7); Neutrophil % 62.9 % (47-70); Platelet Count 317 K/mm3 (150-450); RBC Distribution Width CV 12.3 % (11.6-14.6); RBC Distribution Width SD 38.3 fl (35.1-43.9); Red Blood Count 4.78 M/mm3 (4.2-5.4); White Blood Count 7.7 K/mm3 (4.4-11.0)
[2022-11-16 18:12] LABS: AST(SGOT) 18 U/L (15-37); Alanine Aminotransfer ALT/SGPT 42 U/L (13-56); Albumin, Serum 3.9 g/dL (3.2-5.0); Alkaline Phosphatase 101 U/L (45-117); Anion Gap 5 (5-15); BUN 11 mg/dL (7-18); BUN/Creat Ratio 12.6 RATIO (10-20); Chloride 105 mmol/L (98-107); Creatinine, Serum 0.87 mg/dL (0.55-1.02); EST Glomerular Filtration Rate 79 mL/min (>60); Est Glom Filt Rate - Afr Amer 96 mL/min (>60); Glucose 85 mg/dL (74-106); Potassium 3.6 mmol/L (3.5-5.1); Protein, Total 7.9 g/dL (6.4-8.2); Sodium Level 136 mmol/L (136-145)
== END | disposition home or self-care (01) ==
LOC: LAB 17:31
PROVIDERS: PCP Nurse Practitioner Family; Visit Provider Internal Medicine Rheumatology
DX: L40.50 Arthropathic psoriasis, unspecified (principal); Z79.899 Other long term (current) drug therapy
CPT/HCPCS: 80053; 85025